=== PATIENT | female | born 1945 | race Caucasian/White ===

== ENCOUNTER → 2020-06-12 08:15 | Outpatient (BNVA) | payer MEDICARE, OTHER, SELFPAY | PROVIDERS: Family Provider Nurse Practitioner; PCP Nurse Practitioner; Visit Provider Nurse Practitioner | DX: J43.9 Emphysema, unspecified (principal); I10 Essential (primary) hypertension | CPT/HCPCS: 80053; 80061; 85025 ==

== ENCOUNTER 2020-11-16 08:26 | Outpatient (CLI) | payer MEDICARE, OTHER, SELFPAY ==
--- NOTE | 2020-11-16 08:32 | MM_ITS ---
WS: [id number] BILATERAL SCREENING DIGITAL MAMMOGRAM WITH CAD HISTORY: SCREENING COMPARISON: 09/17/2019, 08/10/2018, 05/19/2017 Bilateral CC and MLO views submitted. Computer aided detection analyzed. Breast composition: There are scattered areas of fibroglandular density. No suspicious masses, microc alcifications or architectural distortion. Stable nodules and calcifications. No suspicious masses or increasing cluster of calcifications. MM/[id number] IMPRESSION: BI-RADS: 2-Benign FOLLOW UP: 1 Year Follow-up
== END 2020-11-16 08:27 | disposition home or self-care (01) ==
LOC: RADSHAW 08:29
PROVIDERS: Family Provider Nurse Practitioner; PCP Nurse Practitioner; Visit Provider Nurse Practitioner
DX: Z12.31 Encounter for screening mammogram for malignant neoplasm of breast (principal)
CPT/HCPCS: 77067

== ENCOUNTER → 2020-12-29 08:13 | Outpatient (BNVA) | payer MEDICARE, OTHER, SELFPAY | PROVIDERS: Family Provider Nurse Practitioner; PCP Nurse Practitioner; Visit Provider Nurse Practitioner | DX: J43.9 Emphysema, unspecified (principal); I10 Essential (primary) hypertension | CPT/HCPCS: 80053; 80061; 85025 ==

== ENCOUNTER → 2021-06-17 13:56 | Outpatient (BNVA) | payer MEDICARE, OTHER, SELFPAY | PROVIDERS: Family Provider Nurse Practitioner; PCP Nurse Practitioner; Visit Provider Nurse Practitioner | DX: I10 Essential (primary) hypertension (principal); J43.9 Emphysema, unspecified; Z99.81 Dependence on supplemental oxygen | CPT/HCPCS: 80053; 80061; 84443 ==

== ENCOUNTER → 2021-12-23 08:13 | Outpatient (BNVA) | payer MEDICARE, OTHER, SELFPAY | PROVIDERS: Family Provider Nurse Practitioner; PCP Nurse Practitioner; Visit Provider Nurse Practitioner | DX: I10 Essential (primary) hypertension (principal); J43.9 Emphysema, unspecified | CPT/HCPCS: 80053; 80061; 85025 ==

== ENCOUNTER 2022-03-15 08:37 | Outpatient (CLI) | payer MEDICARE, OTHER, SELFPAY ==
--- NOTE | 2022-03-15 08:47 | MM_ITS ---
WS: [id number] BILATERAL SCREENING DIGITAL BREAST TOMOSYNTHESIS MAMMOGRAM WITH CAD HISTORY: SCREENING COMPARISON: 11/16/2020, 09/17/2019 and 08/10/2018 Bilateral CC and MLO views with tomosynthesis and synthetic mammography submitted. Computer aided det ection analyzed. Breast composition: There are scattered areas of fibroglandular density. No suspicious masses, microc alcifications or architectural distortion. Nodules in the RIGHT breast are stable. There are 2 new [address] eas of increased density in the lateral LEFT breast which are probably vessel seen on end. No corresp onding abnormality on the lateral projection. MM/[place] [id number] IMPRESSION: BI-RADS: 2-Benign FOLLOW UP: 1 Year Follow-up
== END 2022-03-15 08:38 | disposition home or self-care (01) ==
PROVIDERS: PCP Nurse Practitioner; Visit Provider Nurse Practitioner
DX: Z12.31 Encounter for screening mammogram for malignant neoplasm of breast (principal)
CPT/HCPCS: 77063; 77067

== ENCOUNTER → 2022-06-13 08:36 | Outpatient (BNVA) | payer MEDICARE, OTHER, SELFPAY | PROVIDERS: PCP Nurse Practitioner; Visit Provider Nurse Practitioner | DX: I10 Essential (primary) hypertension (principal); J43.9 Emphysema, unspecified | CPT/HCPCS: 80053; 80061; 85025 ==

== ENCOUNTER → 2023-01-18 09:10 | Outpatient (BNVA) | payer MEDICARE, OTHER, SELFPAY | PROVIDERS: PCP Nurse Practitioner; Visit Provider Nurse Practitioner | DX: I10 Essential (primary) hypertension (principal) | CPT/HCPCS: 80053; 80061; 85025 ==

== ENCOUNTER 2023-03-17 09:43 | Outpatient (CLI) | payer MEDICARE, OTHER, SELFPAY ==
--- NOTE | 2023-03-17 09:54 | MM_ITS ---
WS: [id number] BILATERAL SCREENING DIGITAL TOMOSYNTHESIS MAMMOGRAM WITH CAD HISTORY: Screening. COMPARISON: 03/15/2022, 11/16/2020 Bilateral CC and MLO views with tomosynthesis and synthetic mammography submitted. Computer aided det ection analyzed. Breast composition: There are scattered areas of fibroglandular density. No suspicious masses, microc alcifications or architectural distortion. Long-term stability well-circumscribed masses in the anter ior RIGHT breast near the 6:00 axis. Benign rodlike calcifications in each breast. MM/[place] [id number] IMPRESSION: BI-RADS: 2-Benign FOLLOW UP: 1 Year Follow-up
== END 2023-03-17 09:44 | disposition home or self-care (01) ==
PROVIDERS: PCP Nurse Practitioner; Visit Provider Nurse Practitioner
DX: Z12.31 Encounter for screening mammogram for malignant neoplasm of breast (principal)
CPT/HCPCS: 77063; 77067

== ENCOUNTER → 2023-04-13 09:51 | Outpatient (BNVA) | payer MEDICARE, OTHER, SELFPAY | PROVIDERS: PCP Nurse Practitioner; Visit Provider Nurse Practitioner | DX: I10 Essential (primary) hypertension (principal); J43.9 Emphysema, unspecified | CPT/HCPCS: 80053; 80061; 85025 ==

== ENCOUNTER → 2023-05-16 09:08 | Outpatient (BNVA) | payer MEDICARE, OTHER, SELFPAY | PROVIDERS: PCP Nurse Practitioner; Visit Provider Nurse Practitioner | DX: I10 Essential (primary) hypertension (principal); J43.9 Emphysema, unspecified | CPT/HCPCS: 80048; 85025 ==

== ENCOUNTER → 2023-09-21 09:48 | Outpatient (BNVA) | payer MEDICARE, OTHER, SELFPAY | PROVIDERS: PCP Nurse Practitioner; Visit Provider Nurse Practitioner | DX: I10 Essential (primary) hypertension (principal) | CPT/HCPCS: 80053; 80061; 85025 ==

== ENCOUNTER → 2023-12-14 09:07 | Outpatient (BNVA) | payer MEDICARE, OTHER, SELFPAY | PROVIDERS: PCP Nurse Practitioner; Visit Provider Nurse Practitioner | DX: I10 Essential (primary) hypertension (principal) | CPT/HCPCS: 80053; 80061; 85025 ==

== ENCOUNTER → 2024-02-29 09:57 | Outpatient (BNVA) | payer MEDICARE, OTHER, SELFPAY | PROVIDERS: PCP Nurse Practitioner; Visit Provider Nurse Practitioner | DX: I10 Essential (primary) hypertension (principal); J43.9 Emphysema, unspecified | CPT/HCPCS: 80053; 80061; 85025 ==

== ENCOUNTER 2024-04-23 09:48 | Outpatient (CLI) | payer MEDICARE, OTHER, SELFPAY ==
--- NOTE | 2024-04-23 10:00 | MM_ITS ---
WS: [id number] VIEWS: MLO and CC views both breasts. 3D digital tomosynthesis is also included in this exam. Comparison made with prior exam of 04/30/2008, 05/11/2009, 05/12/2010, 05/18/2011, 08/15/2012, 08/26/2013, 08/10/2014, 09/14/2015, 05/19/2017, 08/10/2018, 09/17/2019, 11/16/2020, 03/15/2022, 03/17/2023.. Findings: There was no sign of mass, architectural distortion or suspicious calcification in either breast. The re are scattered areas of fibroglandular density MM/[place] [id number] Impression: BI-RADS: 2-Benign finding. FOLLOW-UP: 1 Year Follow-up This mammogram was also analyzed by the Computer Aided Detection System R2 [employer].
== END 2024-04-23 09:49 | disposition home or self-care (01) ==
LOC: MOBLMAM 09:50
PROVIDERS: PCP Nurse Practitioner; Visit Provider Nurse Practitioner
DX: Z12.31 Encounter for screening mammogram for malignant neoplasm of breast (principal)
CPT/HCPCS: 77063; 77067

== ENCOUNTER → 2024-05-16 09:59 | Outpatient (BNVA) | payer MEDICARE, OTHER, SELFPAY | PROVIDERS: PCP Nurse Practitioner; Visit Provider Nurse Practitioner | DX: I10 Essential (primary) hypertension (principal); J43.8 Other emphysema | CPT/HCPCS: 80053; 80061; 85025 ==

== ENCOUNTER → 2024-11-14 09:54 | Outpatient (BNVA) | payer MEDICARE, OTHER, SELFPAY | PROVIDERS: PCP Nurse Practitioner; Visit Provider Nurse Practitioner | DX: I10 Essential (primary) hypertension (principal) | CPT/HCPCS: 80053; 80061; 85025 ==

== ENCOUNTER → 2025-05-22 09:13 | Outpatient (BNVA) | payer MEDICARE, OTHER, SELFPAY | PROVIDERS: PCP Nurse Practitioner; Visit Provider Nurse Practitioner | DX: I10 Essential (primary) hypertension (principal); J43.8 Other emphysema; I50.9 Heart failure, unspecified | CPT/HCPCS: 80053; 80061; 85025 ==

== ENCOUNTER → 2025-05-26 09:23 | Outpatient (BNVA) | payer MEDICARE, OTHER, SELFPAY | PROVIDERS: PCP Nurse Practitioner; Visit Provider Nurse Practitioner | DX: I50.9 Heart failure, unspecified (principal); I10 Essential (primary) hypertension; J43.8 Other emphysema | CPT/HCPCS: 83880 ==

== ENCOUNTER 2025-05-28 08:34 | Outpatient (CLI) | payer MEDICARE, OTHER, SELFPAY ==
--- NOTE | 2025-05-28 08:30 | CT_ITS ---
WS: [id number] CT ABDOMEN AND PELVIS WITH CONTRAST HISTORY: J43.8 - Other emphysema TECHNIQUE: Imaging performed of the abdomen and pelvis with IV contrast. Single phase imaging of the abdomen. Coronal and sagittal reformats are submitted. All CT scans at [facility] use at least one of these dose optimization techniques: automated exposure control; mA and/or kV adjustment per patient size (includes targeted exams where dose is matched to clinical indication); or iterative reconstruction. IV CONTRAST: Omnipaque 350; 100 mL IV. Oral contrast: Yes. DLP: 371.64 mGy.cm COMPARISON: None available. Lower thorax: Linear atelectasis at the lung bases. Moderate cardiomegaly. Heavily calcified mitral annulus. Small hiatal hernia. Liver/biliary system: Normal size with granulomata. Gallbladder: Normal. No gallstones or wall thickening. No pericholecystic fluid. Pancreas: Normal size pancreas and pancreatic duct. No adjacent inflammation. Spleen: Normal size with granuloma. Adrenal glands: Normal. Right kidney: Normal. Left kidney: Tiny cortical hypodensity superior kidney. No obstruction. Aorta: Heavily calcified abdominal aorta. Atherosclerotic plaque continues into the mesenteric arteries. Calcified plaque at the origin of the renal arteries also. Heavily calcified iliac arteries. Lymphadenopathy: None. Free fluid: None. GI tract: Stomach is not distended. No small bowel obstruction. Normal appendix. No colon obstruction. Scattered diffuse inspissated fecal material within the colon. No significant diverticulosis. No colitis. Abdominal wall: Fat containing umbilical hernia. Marked thinning of the abdominal wall musculature. Pelvis: Uterus remains present and contains calcified fibroids. No pelvic mass. No adenopathy. Bones: Increased lumbar lordosis. CT/CT abdomen pelvis w con* [id number] IMPRESSION: 1. No acute abdominal or pelvic abnormalities. 2. Advanced atherosclerotic disease within the abdominal aorta. Calcified plaq ue extends into the iliac arteries and the mesenteric arteries. No GI tract isc hemia is noted during this examination. Patient is at risk for ischemia due to the atherosclerotic calcification. 3. No ascites or adenopathy. 4. Small hiatal hernia. 5. Moderate cardiomegaly.
--- NOTE | 2025-05-28 08:30 | CT_ITS ---
WS: [id number] CT chest wo con [id number] HISTORY: J43.8 - Other emphysema TECHNIQUE: Axial imaging performed through the thorax. Coronal and sagittal reformats are submitted. All CT scans at [facility] use at least one of these dose optimization techniques: automated exposure control; mA and/or kV adjustment per patient size (includes targeted exams where dose is matched to clinical indication); or iterative reconstruction. CONTRAST: None DLP: 235.02 mGy.cm COMPARISON: 01/04/2016 Lungs and central airway: Marked pulmonary hyper expansion. Centrilobular emphysema. There is mild interstitial thickening which may be edema. No pulmonary mass or nodule. Subsegmental atelectasis at the RIGHT lung base and lingula. Benign granuloma RIGHT lower lobe. No endobronchial lesions. Pleura: Normal. No pleural effusion. Heart and pericardium: Moderate cardiomegaly. Dense calcification along the mitral annular valve plane. Heavy calcification of the coronary arteries. Calcification within the aortic root. Mediastinum and luna: No mediastinum or hilar adenopathy. Vessels: Extensive atherosclerotic plaque within the thoracic aorta. No aneurysm. Dilated pulmonary artery. Chest wall and lower neck: Calcified plaque continues into the great vessels. There are 3 small nodules associated with the RIGHT breast which were also present in 2016. Upper abdomen: Dense calcification in the suprarenal abdominal aorta. There is also small amount of oral contrast in the distal esophagus. Osseous structures: Increase in thoracic kyphosis. CT/CT chest wo con [id number] IMPRESSION: 1. Advanced emphysema. 2. Mild interstitial thickening probably related to edema or mild pneumonitis. There is no pneumonia. 3. Cardiomegaly. 4. Advanced atherosclerotic plaque within the thoracic aorta and the coronary arteries. 5. Pulmonary hypertension. 6. No adenopathy.
[2025-05-28] MEDS: iohexol 350 mg/mL 500 mL Btl (per mL) PO (10:19)
[2025-05-28] MEDS: iohexol 350 mg/mL 500 mL Btl (per mL) IV (10:20)
== END 2025-05-28 08:35 | disposition home or self-care (01) ==
LOC: RAD 08:36
PROVIDERS: PCP Nurse Practitioner; Visit Provider Nurse Practitioner
DX: J43.8 Other emphysema (principal); R63.4 Abnormal weight loss; I51.7 Cardiomegaly; I25.10 Atherosclerotic heart disease of native coronary artery without angina pectoris; I70.0 Atherosclerosis of aorta; I27.20 Pulmonary hypertension, unspecified; K44.9 Diaphragmatic hernia without obstruction or gangrene
CPT/HCPCS: 71250; 74177

== ENCOUNTER 2025-06-20 07:32 | Outpatient (CLI) | payer MEDICARE, OTHER, SELFPAY ==
--- NOTE | 2025-06-20 07:35 | USCV_ITS ---
Ad Danni Age: 80 Gender: F : 1945 Exam Date: 06/20/2025 08:00 Ordering Phys: Silvana Campos Technologist: Stephen Jacob Exam Location: [facility] Indication: heart failure BP: 121 / 78 HR: 90 Rhythm: Other Technical Quality: Adequate MEASUREMENTS (Male / Female) Normal Values 2D ECHO LV Diastolic Diameter PLAX 3.4 cm 4.2 - 5.9 / 3.9 - 5.3 cm IVS Diastolic Thickness 1.0 cm 0.6 - 1.0 / 0.6 - 0.9 cm IVS Systolic Thickness 1.1 cm LVPW Diastolic Thickness 0.9 cm 0.6 - 1.0 / 0.6 - 0.9 cm LVPW Systolic Thickness 1.3 cm LVOT Diameter 2.0 cm LV Ejection Fraction 2D Teich 51.1 % LV Ejection Fraction MOD 4C 68.4 % LV Ejection Fraction MOD 2C 71.6 % LV Ejection Fraction 2C AL 70.7 % LA Diameter 3.0 cm RA Systolic Volume 4C AL 26.3 ml RA Systolic Volume 4C MOD 26.5 ml LA Sys Volume AL 61.5 cm cubed LA Sys Volume Index AL 35.0 cm cubed/m squared Aorta at Sinotubular Diameter 1.8 cm IVC Diameter 1.8 cm M-MODE LA Ao Ratio MM 1.4 AV Cusp Separation MM 0.9 cm DOPPLER AV Peak Velocity 199.3 cm/s LVOT Peak Velocity 79.0 cm/s AV Area Cont Eq vti 1.4 cm squared AV Area Cont Eq pk 1.3 cm squared MV Peak Velocity 169.0 cm/s MV Area PHT 5.8 cm squared Mitral E to A Ratio 4.2 TV Peak Velocity 286.0 cm/s TR Peak Velocity 293.0 cm/s TR Peak Gradient 34.3 mmHg TR Mean Velocity 244.0 cm/s TR Mean Gradient 25.1 mmHg TR Velocity Time Integral 86.3 cm PV Peak Velocity 111.0 cm/s RV Ejection Time 0.2 s FINDINGS Left Ventricle Normal left ventricular size and systolic function, EF 68%. Unable to assess diastolic function due to severe mitral annular calcification. Normal left ventricular wall thickness Right Ventricle Normal right ventricular size and systolic function. Right Atrium Normal right atrial size. Left Atrium Mildly increased left atrial size. Mitral Valve Severe mitral annular calcification. Mild-moderate mitral valve regurgitation. Aortic Valve Aortic valve structure not well-visualized. Mild aortic valve stenosis. No aortic valve regurgitation Tricuspid Valve Trace tricuspid valve regurgitation. Normal pulmonary pressure. Pulmonic Valve Mild pulmonary valve regurgitation. Pericardium No pericardial effusion. Aorta Normal size aortic root and proximal ascending aorta. IVC Normal inferior vena cava. CONCLUSIONS 1. Normal left ventricular size and systolic function, EF 68% 2. Unable to assess left ventricular diastolic function due to presence of severe mitral annular calcification 3. Mild aortic valve stenosis Moris Sandra MD, FACC (Electronically Signed) Final Date: 20 June 2025 13:29 S
== END 2025-06-20 07:33 | disposition home or self-care (01) ==
LOC: RAD 07:33
PROVIDERS: PCP Nurse Practitioner; Visit Provider Nurse Practitioner
DX: I50.9 Heart failure, unspecified (principal); I35.0 Nonrheumatic aortic (valve) stenosis
CPT/HCPCS: 93306

== ENCOUNTER → 2025-07-31 09:08 | Outpatient (BNVA) | payer MEDICARE, OTHER, SELFPAY | PROVIDERS: PCP Nurse Practitioner; Visit Provider Nurse Practitioner | DX: I10 Essential (primary) hypertension (principal); I25.10 Atherosclerotic heart disease of native coronary artery without angina pectoris; I34.81 Nonrheumatic mitral (valve) annulus calcification | CPT/HCPCS: 80048; 83880 ==